=== PATIENT | male | born 1970 | race African-American/Black ===

== ENCOUNTER 2020-03-22 11:23 | Emergency (ER) | payer OTHER, SELFPAY ==
[2020-03-22] VITALS (19 sets, daily range): BP systolic 139–169; BP diastolic 81–100; PULSE 74–101; RESP 15–24; TEMP 36.8; O2SAT 96–100
--- NOTE | ~2020-03-22 | XR_ITS ---
XR chest 2V DATE: 03/22/2020 11:43 INDICATION: Chest pain TECHNIQUE: PA and lateral views COMPARISON: None FINDINGS: Normal heart size. No hilar or mediastinal enlargement. No pulmonary infiltrate or consolidation, pleural effusion or pulmonary vascular congestion or pneumo thorax. Incidental finding of spina bifida occulta at T2. IMPRESSION: No active cardiopulmonary disease Reviewed, dictated and finalized at location A.
--- NOTE | 2020-03-22 11:25 | ECG_ITS ---
Measurements Intervals [place] Rate: 97 P: 40 RI: 158 QRS: -14 QRSD: 86 T: 35 QT: 317 QTc: 404 Interpretive Statements SINUS RHYTHM WITH SINUS ARRHYTHMIA BASELINE ARTIFACT- I, III, AVL NORMAL ECG Electronically Signed On 03-22-2020 12:14:43 CDT by John Moses D.O.
[2020-03-22 11:50] LABS: Basophils Percent Auto 0.4 % (0.2-1.2); Eosinophils Absolute Auto 0.1 K/mm3 (0-0.3); Hemoglobin 16.1 g/dL (14.0-18.0); Immature Granulocyte Absolute 0.01 K/mm3 (0.00-0.031); Immature Granulocyte Percent A 0.2 % (0-0.5); Lymphocytes Absolute Auto 2.15 K/mm3 (0.9-3.2); Lymphocytes Percent Auto 42.7 % (18.3-44.2); Mean Corpuscular HGB Conc 33.5 g/dl (32-36); Mean Corpuscular Hemoglobin 29.4 pg (26-34); Mean Corpuscular Volume 87.6 fl (80-100); Mean Platelet Volume 10.3 fl (7.4-10.4); Monocytes Absolute Auto 0.4 K/mm3 (0.1-0.6); Monocytes Percent Auto 8.5 % (2.6-8.5); Neutrophils Absolute Auto 2.3 K/mm3 (1.3-6.7); Neutrophils Percent Auto 46.2 % (45.5-73.1); Platelet Count Result 267 k/mm3 (150-375); Red Blood Count 5.48 M/mm3 (4.6-6.20); Red Cell Distribution Width 12.3 % (11.5-14.5)
[2020-03-22] MEDS: ASPIRIN 81 MG CHEWABLE TABLET 324 MG PO (11:54)
--- NOTE | 2020-03-22 11:58 | ED.CHESTPAIN ---
HPI - Chest Pain General Chief Complaint: Chest Pain <Fabrizio Nelson PA-C - Last Filed: 03/22/20 15:36> Stated Complaint: chest tightness <ANTHONY Boyer Last Filed: 03/22/20 15:36> Time Seen by Provider: 03/22/20 11:38 <Fabrizio Nelson PA-C - Last Filed: 03/22/20 15:36> Source: patient, EMS and old records reviewed <Fabrizio Nelson PA-C - Last Filed: 03/22/20 15:36> Mode of arrival: ambulatory <ANTHONY Boyer Last Filed: 03/22/20 15:36> Limitations: no limitations <ANTHONY Boyer Last Filed: 03/22/20 15:36> History of Present Illness HPI narrative: Patient is a 49-year-old male who presents with tightness of the left chest and shoulder been present for 2 weeks off and on and occurs every day last several hours and resolve spontaneously does not radiate denies injury trauma or recent illness presents per private vehicle in no distress has not taken anything for his symptoms also notes that with deep breathing the pain is worse <Fabrizio Nelson PA-C - Last Filed: 03/22/20 15:36> Related Data Home Medications: Home Medications Medication Instructions Recorded Confirmed No Home Medications 03/22/20 03/22/20 <Fabrizio Nelson PA-C - Last Filed: 03/22/20 15:36> Allergies/Adverse Reactions: Allergies Allergy/AdvReac Type Severity Reaction Status Date / Time acetaminophen [From Tylenol] Allergy Hives Verified 03/22/20 11:31 <Fabrizio Nelson PA-C - Last Filed: 03/22/20 15:36> Review of Systems Review of Systems: All systems reviewed & are unremarkable except as noted in HPI and below <Fabrizio Nelson PA-C - Last Filed: 03/22/20 15:36> ON LICENSE OF [facility] Social History Social History: Social History (Updated 03/22/20 @ 11:58 by Fabrizio Nelson PA-C) Smoking status: Never smoker Gender identity (if verbalized by the patient): Male <ANTHONY Boyer Last Filed: 03/22/20 15:36> Exam Narrative: Exam Narrative: GENERAL: Well-appearing, well-nourished, and in no acute distress. HEAD: Normocephalic, atraumatic. EYES: PERRLA and EOMI. ENT: Nares clear, no rhinorrhea or epistaxis. Mucous membranes moist. CHEST: Clear to auscultation. No respiratory distress. No wheezes rales or rhonchi HEART: Regular rate and rhythm. No murmur heard. Normal peripheral pulses. ABDOMEN: Soft, nontender, nondistended EXTREMITIES: Normal range of motion. No edema. SKIN: Warm, dry, no rash. NEURO: No focal deficits. Alert and oriented x3. PSYCH: Normal mood and affect. <ANTHONY Boyer Last Filed: 03/22/20 15:36> Course Course Emergency Course: Patient in the room in no distress aware of case findings treatment plan and diagnosis <ANTHONY Boyer Last Filed: 03/22/20 15:36> Vital Signs Vital signs: Vital Signs Temperature 36.8 C 03/22/20 11:27 Pulse Rate 101 H 03/22/20 11:27 Respiratory Rate 20 03/22/20 11:27 Blood Pressure 169/100 H 03/22/20 11:27 Pulse Oximetry 99 03/22/20 11:27 Temperature 36.8 C 03/22/20 11:27 Pulse Rate 83 03/22/20 15:31 Respiratory Rate 17 03/22/20 15:31 Blood Pressure 152/86 H 03/22/20 15:31 Pulse Oximetry 98 03/22/20 15:31 <Fabrizio Nelson PA-C - Last Filed: 03/22/20 15:36> Vital Signs Temperature 36.8 C 03/22/20 11:27 Pulse Rate 101 H 03/22/20 11:27 Respiratory Rate 20 03/22/20 11:27 Blood Pressure 169/100 H 03/22/20 11:27 Pulse Oximetry 99 03/22/20 11:27 Temperature 36.8 C 03/22/20 11:27 Pulse Rate 83 03/22/20 15:31 Respiratory Rate 17 03/22/20 15:31 Blood Pressure 152/86 H 03/22/20 15:31 Pulse Oximetry 98 03/22/20 15:31 <Haley Ashraf MD - Last Filed: 03/22/20 16:14> MDM - Chest Pain MDM Narrative Medical decision making narrative: Patients ITS Impressions Chest X-Ray 03/22/20 11:43 IMPRESSION: No active cardiopulmonary disease and labs are withou
[2020-03-22 12:08] LABS: INR 0.9; Partial Thromboplastin Time 25.4 SECONDS (22.3-36.8); Prothrombin Time 11.9 Seconds (11.1-14.7)
[2020-03-22 13:11] LABS: Blood Urea Nitrogen 11 mg/dL (9-20); Calcium 9.7 mg/dL (8.4-10.2); Carbon Dioxide 31 mmol/L (22-30); Chloride 100 mmol/L (98-107); Estimated CRCL calculation 79 ml/min; Estimated Glomerular Filt Rate > 60; Glucose 117 mg/dL (75-110); Potassium 4.3 mmol/L (3.4-5.0); Sodium 137 mmol/L (137-145)
[2020-03-22 13:23] LABS: Troponin I < 0.012 ng/mL (0.000-0.034)
[2020-03-22 15:04] LABS: Troponin I < 0.012 ng/mL (0.000-0.034)
== END 2020-03-22 15:41 ==
PROVIDERS: Emergency Provider Emergency Medicine
DX: R07.89 Other chest pain (principal)
CPT/HCPCS: 36415; 71046; 80048; 84484; 85025; 85610; 85730; 93005; 99284; A9270